=== PATIENT | female | born 1945 | race Two or more races ===

== ENCOUNTER 2018-04-19 07:16 | Outpatient (CLI) | payer OTHER ==
[~2018-04-19 07:16] MED LIST: NABUMETONE750 MG; VERAPAMIL HCL240 M1
== END 2018-04-19 07:36 | disposition home or self-care (01) ==
LOC: NUCLEAR 07:16
DX: I20.0 Unstable angina (principal); E78.2 Mixed hyperlipidemia; I11.9 Hypertensive heart disease without heart failure; I48.0 Paroxysmal atrial fibrillation
CPT/HCPCS: 78452; 93017; A9500; J0153